=== PATIENT | female | born 1970 | race Caucasian/White ===

== ENCOUNTER → 2024-03-02 | Outpatient (BNVA) | payer BC, SELFPAY | END | disposition home or self-care (01) | PROVIDERS: PCP Family Medicine; Referring Provider Family Medicine; Visit Provider Urology | DX: N39.46 Mixed incontinence (principal); Z87.442 Personal history of urinary calculi; E78.2 Mixed hyperlipidemia; E66.9 Obesity, unspecified; Z68.36 Body mass index [BMI] 36.0-36.9, adult | CPT/HCPCS: 81003; 99212; G0463 ==

== ENCOUNTER → 2024-03-12 | Outpatient (CLI) | payer BC, SELFPAY ==
--- NOTE | 2024-03-12 14:37 | XR_ITS ---
Examination: Diagnostic digital mammography, unilateral, right Computer aided detection 3-D breast Tomosynthesis, unilateral Date and time of exam: March 12, 2024 at 1453 hours INDICATIONS: Mammogram March 09, 2024 14 mm nodule retroareolar region right breast Technique: Nonmagnified MLO, CC views of the right breast have been obtained, reconstructed from 3-D Tomosynthesis images. R2 computer aided detection program utilized for evaluation of suspicious masses and/or abnormal calcifications. 3-D Tomosynthesis images obtained. Findings: Scattered areas of fibroglandular density. No suspicious retroareolar mass is confirmed Impression: BI-RADS category 2: Benign findings Return to yearly follow-up mammography
--- NOTE | 2024-03-12 14:37 | XR_ITS ---
Examination: Breast ultrasound, unilateral, right complete Date and time of exam: March 12, 2024 1445 hours INDICATIONS: Right nipple pain one year, history right lumpectomy 2018 negative, mammogram March 09, 2024 more pronounced 14 mm nodule retroareolar region right breast with indistinct margins, retroareolar cyst on ultrasound right breast March 09, 2024 Technique: Real-time sommer scale ultrasonographic imaging performed right breast including all 4 quadrants as well as nipple retroareolar and axillary region. Findings: Multiple retroareolar cysts, 5 x 4 x 5 mm, 4 x 4 x 5 mm, 16 x 5 x 18 mm, 5 x 3 x 3 mm No solid nodules IMPRESSION: BI-RADS Category 2: Benign findings
== END | disposition home or self-care (01) ==
LOC: CDIM 14:29
PROVIDERS: PCP Family Medicine; Referring Provider Nurse Practitioner Family; Visit Provider Nurse Practitioner Family
DX: R92.321 Mammographic fibroglandular density, right breast (principal); N60.01 Solitary cyst of right breast
CPT/HCPCS: 76641; 77061; 77065; G0279

== ENCOUNTER 2024-03-21 08:05 | Day surgery (SDC) | payer BC, SELFPAY ==
[2024-03-20 11:33] VITALS: BMI 36.5
[2024-03-21 08:40] VITALS: BP 156/87; PULSE 70; RESP 20; TEMP 36.8; O2SAT 97; BMI 36.2
[2024-03-21] MEDS: RINGERS LACTATED 1000 ML 1,000 ML 20 ML IV (08:53)
[2024-03-21 11:15] VITALS: BP 158/102; PULSE 67; RESP 12; TEMP 36.7; O2SAT 98
--- NOTE | 2024-03-21 11:15 | SUR.PHASEI ---
1115 Patient arrived to recovery resting comfortably in [facility], drowsy and talking with staff, breathing unlabored, vital signs stable, denies pain, urinary catheter 16F in place, draining to gravity with light pink urine in place, lung sounds clear upon auscultation, bilateral radial pulses present when palpated, report received from Richi MEJIA and Dr. Tobar
[2024-03-21 11:20] VITALS: BP 144/85; PULSE 75; RESP 16; O2SAT 99
[2024-03-21 11:25] VITALS: BP 124/82; PULSE 62; RESP 15; O2SAT 97
[2024-03-21 11:30] VITALS: BP 130/87; PULSE 60; RESP 15; O2SAT 97
--- NOTE | 2024-03-21 11:37 | PD.SUROPNT ---
Date of Procedure 03/21/24 Pre Op Diagnosis Gross hematuria, recurrent urinary tract infection, Post Op Diagnosis Same plus bladder neck polyps and changes of cystitis cystica Procedure Cystoscopic examination bladder biopsy fulguration of bladder neck polyps Findings Cystitis cystica, bladder neck polyps Procedure Description This is a 54-year-old female she was seen in urology office she has a history of gross hematuria recurrent UTI. CAT scan of the abdomen and pelvis was done there was no kidney ureteral or bladder mass identified. She was recommended above procedure procedure and complications were discussed with the patient in great detail informed consent is obtained. Patient was brought to the operating room in a satisfactory condition after appropriate premedication she was appropriately identified by surgeon and operating room staff site scope and indication of the procedure were reconfirmed with the patient. Next patient was positioned in dorsolithotomy position after induction of general anesthesia uneventfully 21 cystoscope was introduced into the bladder per urethra examination of bladder in all the quadrant was carried out she had mild bladder trabeculation. There were bladder neck polyps fulguration was carried out there were changes of cystitis cystica biopsy was obtained fulguration was done. This was done to make sure there is no other pathology. At the end of the procedure no active bleeding was seen instrument was withdrawn gently patient and next after having tolerated the procedure well was sent to recovery room in a satisfactory condition to be discharged home with the full postoperative instructions verbally as well as in writing and of dictation thank you Anesthesia GETA Pathology / specimen Other (Bladder biopsy) Estimated Blood Loss 0.2 Disposition PACU Surgeon Gene Narayan MD Surgical Staff Operation Date: 03/21/24 10:30 Case Staff Anesthesiologist: Alex Tobar
--- NOTE | 2024-03-21 11:42 | SUR.PHASEII ---
1142 Gregg catheter discontinued per MD coats
[2024-03-21 11:45] VITALS: BP 126/81; PULSE 60; RESP 17; TEMP 36.8; O2SAT 96
--- NOTE | 2024-03-21 11:46 | SUR.PHASEII ---
1146 patient eating ice chips, tolerating well, denies nausea
--- NOTE | 2024-03-21 11:51 | SUR.PHASEII ---
1151 Report given to Cheryl Colbert RN
--- NOTE | 2024-03-21 12:12 | SUR.PHASEII ---
1151: pt awake, alert, able to follow commands, breathing unlabored, pt disconnected from monitors and ready to ambulate to bathroom, report from Cheryl Almanzar RN. 1212: pt able to ambulate with steady gait and dress self, discharge instructions given with son present, all questions answered, pt discharged via wheelchair with all belongings and copies of discharge paperwork
== END 2024-03-21 12:12 | disposition home or self-care (01) ==
PROVIDERS: PCP Nurse Practitioner Family; Referring Provider Urology; Visit Provider Urology
PROC: 0T5B8ZZ Destruction of Bladder, Via Natural or Artificial Opening Endoscopic (ICD-10-PCS; CPT 52214; principal; 2024-03-21 10:15)
DX: N30.81 Other cystitis with hematuria (principal); Z87.440 Personal history of urinary (tract) infections
CPT/HCPCS: 52214; A4217; A4649; J1100; J1580; J2250; J2405; J2704; J3010; J7120

== ENCOUNTER → 2024-06-11 | Outpatient (CLI) | payer BC, SELFPAY ==
[2024-06-11 14:55] LABS: Collection Type, Urine Clean Catch
[2024-06-11 15:56] LABS: Bacteria,Urine 3+; Bilirubin,Urine Negative (Negative); Blood,Urine Negative (Negative); Clarity,Urine Clear (Clear/Hazy); Color,Urine Yellow (Lt Yel-Yel); Glucose, Urine Negative (Negative); Ketones,Urine Negative (Negative); Leukocyte Esterase,Urine Positive (Negative); Nitrite,Urine Negative (Negative); PH,Urine 5.5 (5.0-7.0); Protein,Urine Negative (Neg - Trace); RBC,Urine 1 /hpf (0-3); Specific Gravity,Urine 1.023 (1.001-1.035); Squamous Epithelial Cell,Urine 3 /hpf (0-5); Urobilinogen,Urine Negative mg/dL (0.0-1.0); WBC,Urine 9 /hpf (0-5)
== END | disposition home or self-care (01) ==
LOC: SLDO 14:35
PROVIDERS: PCP Nurse Practitioner Family; Referring Provider Nurse Practitioner Family; Visit Provider Nurse Practitioner Family
DX: N30.00 Acute cystitis without hematuria (principal)
CPT/HCPCS: 81001; 87077; 87086; 87186

== ENCOUNTER → 2024-06-22 | Outpatient (BNVA) | payer BC, SELFPAY | END | disposition home or self-care (01) | PROVIDERS: PCP Family Medicine; Referring Provider Family Medicine; Visit Provider Urology | DX: N30.20 Other chronic cystitis without hematuria (principal); Z87.440 Personal history of urinary (tract) infections; Z87.442 Personal history of urinary calculi; E78.5 Hyperlipidemia, unspecified; E66.9 Obesity, unspecified; Z68.36 Body mass index [BMI] 36.0-36.9, adult | CPT/HCPCS: 81003; 99212; G0463 ==

== ENCOUNTER 2024-07-21 21:17 | Emergency (ER) | payer BC, SELFPAY ==
[2024-07-21 21:18] VITALS: BMI 36.0
--- NOTE | 2024-07-21 21:38 | EKG_ITS ---
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
[2024-07-21 21:44] VITALS: BP 147/89; PULSE 71; RESP 18; TEMP 36.8; O2SAT 98
--- NOTE | 2024-07-21 22:11 | EDNOTE_ITS ---
ED Chest Pain RME/HPI General Chief Complaint: Chest Pain Stated Complaint: Chest pain, NV Time Seen by Provider: 07/21/24 22:00 Arrival date/time: 07/21/24 21:17 RME / HPI RME / HPI narrative: This section includes all my notes and documentations, including HPI, PE, and ED course. Osman Carlson MD HPI: 54-year-old female here with several days of anterior chest pain. Seems to be worse with palpation and certain positions. No fever or chills. No shortness of breath. No unusual malaise and fatigue. No other complaints. ROS: All negative except as documented in HPI. Physical Exam: General: Alert and oriented. No acute distress when remaining still. Eyes: Conjunctivae and lids clear. ENT: No nasal congestion. Neck: Supple. Heart: RRR. Lungs: No respiratory distress. Good air movement. No rhonchi, wheezing, rales. Chest: Palpation of the anterior chest reproduces her pain. Abdomen: Soft and nontender. Skin: Warm and dry. Neuro: Alert and oriented X 3. I reviewed all diagnostic test results. My interpretation of the EKG is sinus rhythm with no acute ST?T changes. Blood tests unremarkable, including negative troponin/D-dimer/BNP. At this point, diagnoses include musculoskeletal chest pain. Treatment here included two Tylenol #3. Significant improvement noted. Recommended more outpatient cardiac workup. Based on my best medical judgment, made decision no further evaluation or treatment indicated at this time. Patient understands and agrees to the discharge instructions customized and printed, see below. Discharge instructions from Dr. Carlson: 1. After extensive evaluation, there is no life-threatening condition.? Such as heart attack or pulmonary embolism (blood clots in your lungs) or pneumothorax (collapsed lung). 2. Your pain can be originating from the chest wall and not from an internal organ.? The chest wall has many joints and muscles between the ribs, so sprains and strains are common.??There are other possibilities, including underlying stress/nerves/anxiety. 3. Apply ice or heat if helpful.? Tylenol with codeine for severe pain. 4. See a private doctor on 07/23/2024. To make sure there is no serious underlying heart condition, ask to help you get more tests for your heart that cannot be done here in the ER.? Such as Holter Monitor (cardiac monitoring at home from a day to even a month), heart stress test (on treadmill or with medication), echocardiogram (imaging of your heart structures), heart catherization (checking for blockages in your heart arteries), and a referral to see a Senior Commissions Analyst.? 5. Seek immediate medical care with worsening or with any concerns.?? Osman Carlson MD Related Data Previous Rx's ?Medication ?Instructions ?Recorded acetaminophen 300 mg-codeine 30 mg 2 tab PO Q8H PRN pa in #20 tabs 07/21/24 tablet Allergies Allergy/AdvReac Type Severity Reaction Status Date / Time No Known Allergies Allergy Verified 06/22/24 08:26 Course Quality Measures none Orders Category Date Time Status EKG (ED ONLY) *Do not use* NOW Care 07/21/24 21:38 Completed EKG (ED Only) Stat Exams 07/21/24 21:38 Draft BNP [B-Type Natriuretic Peptide] Stat Lab 07/21/24 22:34 Completed CBC Stat Lab 07/21/24 22:34 Completed CMP [Comprehensive Metabolic Panel] Stat Lab 07/21/24 22:34 Completed D-Dimer Stat Lab 07/21/24 22:34 Completed Magnesium Stat Lab 07/21/24 22:34 Completed TSH [Thyroid Stimulating Hormone] Stat Lab 07/21/24 22:34 Completed Troponin I Stat Lab 07/21/24 22:34 Completed ACETAMINOPHEN w/COD 300-30 [Tylenol w/Cod #3] Med 07/21/24 22:11 Discontinued 2 tab PO X1 ONE Vital Signs Vital signs: Vital Signs Temperature 98.2 F 07/21/24 21:44 Pulse Rate 71 07/21/24 21:44 Respiratory Rate 18 07/21/24 21:44 Blood Pressure 147/89 H 07/21/24 21:44 Pulse Oximetry (%) 98 07/21/24 21:44 Chest Pain Patient data External records reviewed:: [facility] [place] previous records Clinical information provided by:: patient Social determinants that could affect healthcare access:: none Patient has the following chronic illnesses:: Chronic chest pain How is presenting disease/condition affected by chronic disease/condition?: uneffected by Evaluation data The following diagnostics were reviewed and interpreted by me:: lab results, radiology exam(s) and EKG tracing(s) Lab and/or radiology exams considered but not ordered:: None Interpretation Summary: Normal diagnostics Medications / Prescriptions Medications or Prescriptions considered but not ordered:: None Medication administrations:: Medication Administration History Discontinued Medications Acetaminophen/Codeine Phosphate (Acetaminophen W/Cod 300-30 Tablet) 2 tab PO X1 ONE Stop: 07/21/24 22:12 Last Admin: 07/21/24 23:11 Dose: 2 tab Documented By: ELLY two Tylenol #3 Consultations Consultation(s) initiated? (list below): No Diagnosis Chest Pain Differential Diagnosis: pneumothorax, stable angina, unstable angina pectoris, atypical chest pain, st elevation myocardial infarction, costochondritis and chest pain Most likely diagnosis given after review of the tests above:: Musculoskeletal chest pain Admission Indicated Admission indicated?: not indicated Explain why admission is indicated or not indicated:: There was no indication for admission. Admission Request Was there a request for admission?: No Disposition Plan Disposition Plan: Discharge Discharge Attestation Discharge Attestation: The patient and all family members were given an opportunity to ask questions and understood the discharge instructions. Discharge instructions specifically effects, indications for sooner follow up or return to the emergency department, and the expected course of current diagnosis. Patient condition: Stable Discharge Plan Plan Patient Disposition: HOME (Self Care) Prescriptions/Referrals Prescriptions/Med Rec: New acetaminophen-codeine 300-30 mg tablet 2 tab PO Q8H MDD 6 PRN (Reason: pain) Qty: 20 0RF Referrals: Nabila Davis, [employer] [Primary Care Provider] - In 1 week Problem List Clinical Impression: Chest pain Patient/Caregiver Discharge Instructions Discharge Activity: activity as tolerated Education Materials: ED Chest Pain, Uncertain Cause Additional Instructions: Discharge instructions from Dr. Carlson: 1. After extensive evaluation, there is no life-threatening condition.? Such as heart attack or pulmonary embolism (blood clots in your lungs) or pneumothorax (collapsed lung). 2. Your pain can be originating from the chest wall and not from an internal organ.? The chest wall has many joints and muscles between the ribs, so sprains and strains are common.??There are other possibilities, including underlying stress/nerves/anxiety. 3. Apply ice or heat if helpful.? Tylenol with codeine for severe pain. 4. See a private doctor on 07/23/2024. To make sure there is no serious underlying heart condition, ask to help you get more tests for your heart that cannot be done here in the ER.? Such as Holter Monitor (cardiac monitoring at home from a day to even a month), heart stress test (on treadmill or with medication), echocardiogram (imaging of your heart structures), heart catherization (checking for blockages in your heart arteries), and a referral to see a Senior Commissions Analyst.? 5. Seek immediate medical care with worsening or with any concerns.?? Print Language: Slovenian Stand Alone Forms: Jackelyn Award Info., Patient Portal Info Letter
[2024-07-21 22:50] LABS: Basophils % (Auto) 1 % (0-2.5); Eosinophils # (Auto) 0.3 Thou/mm3 (0.0-0.5); Eosinophils % (Auto) 4 % (0-10); Hematocrit 40.6 % (36.0-46.0); Hemoglobin 14.3 g/dL (12.0-16.0); Immature Granulocytes % (Auto) 0 % (0-0); Immature Granulocytes Auto 0.02 Thou/mm3 (0.00-0.00); Lymphocytes # (Auto) 2.4 Thou/mm3 (1.0-4.8); Lymphocytes % (Auto) 30 % (10-50); Mean Corpuscular HGB Conc 35.2 g/dl (31.0-37.0); Mean Corpuscular Hemoglobin 29.7 pg (25.0-35.0); Mean Corpuscular Volume 84 fL (80-100); Monocytes # (Auto) 0.4 Thou/mm3 (0.0-0.8); Monocytes % (Auto) 5 % (0-12); Neutrophils # (Auto) 4.7 Thou/mm3 (1.8-7.7); Neutrophils % (Auto) 60 % (37-80); Nucleated Red Blood Cell % 0 /100 WBC (0); Platelet Count 260 Thou/mm3 (140-440); RDW Standard Deviation 42.1 fL (36.4-46.3); Red Blood Count 4.82 Miln/mm3 (4.00-5.20); White Blood Count 7.8 Thou/mm3 (3.6-11.0)
[2024-07-21 23:05] LABS: B-Type Natriuretic Peptide 26 pg/mL (0-100)
[2024-07-21 23:08] LABS: D-Dimer < 250 ng/mL (<600)
[2024-07-21 23:09] LABS: Alanine Aminotransferase 37 U/L (10-49); Albumin, Serum 4.3 gm/dL (3.5-5.0); Albumin/Globulin Ratio 1.9 (1.2-2.2); Alkaline Phosphatase 105 U/L (46-116); Anion Gap 10 (7-16); Aspartate Amino Transferase 28 U/L (0-34); BUN/Creatinine Ratio 14 Ratio (12-20); Bilirubin,Total 0.2 mg/dL (0.3-1.2); Blood Urea Nitrogen 11 mg/dL (9-23); Calcium 9.1 mg/dL (8.3-10.6); Calcium (Corrected) 9.1 mg/dL (8.5-10.1); Carbon Dioxide 25.9 mMol/L (20.0-31.0); Chloride 107 mMol/L (98-107); Creatinine (Component) 0.8 mg/dL (0.6-1.3); Estimated Creatinine Clearance 97.5 mL/min (>60); Globulin 2.3 gm/dL (2.3-3.5); Glucose 144 mg/dL (74-106); Magnesium 2.1 mg/dL (1.6-2.6); Osmolality,Calculated 287 (275-295); Potassium 3.8 mMol/L (3.4-5.1); Sodium 143 mMol/L (136-145); Thyroid Stimulating Hormone 4.82 uIU/mL (0.55-4.78); Total Protein 6.6 gm/dL (5.7-8.2); Troponin I < 0.002 ng/mL (0.0-0.045); eGFR > 60 See Note
[2024-07-21] MEDS: ACETAMINOPHEN w/COD 300-30 TABLET 2 TAB PO (23:11)
== END 2024-07-22 00:06 | disposition home or self-care (01) ==
PROVIDERS: Emergency Provider Emergency Medicine; PCP Nurse Practitioner Family
DX: R07.89 Other chest pain (principal); R94.31 Abnormal electrocardiogram [ECG] [EKG]
CPT/HCPCS: 36415; 80053; 83735; 83880; 84443; 84484; 85025; 85379; 93005; 99283; A9270

== ENCOUNTER → 2024-08-20 | Outpatient (CLI) | payer BC, SELFPAY ==
[2024-08-20 13:16] LABS: Basophils % (Auto) 1 % (0-2.5); Eosinophils # (Auto) 0.2 Thou/mm3 (0.0-0.5); Eosinophils % (Auto) 3 % (0-10); Hematocrit 41.1 % (36.0-46.0); Hemoglobin 13.8 g/dL (12.0-16.0); Immature Granulocytes % (Auto) 0 % (0-0); Immature Granulocytes Auto 0.03 Thou/mm3 (0.00-0.00); Lymphocytes % (Auto) 26 % (10-50); Mean Corpuscular HGB Conc 33.6 g/dl (31.0-37.0); Mean Corpuscular Hemoglobin 28.5 pg (25.0-35.0); Mean Corpuscular Volume 85 fL (80-100); Monocytes # (Auto) 0.6 Thou/mm3 (0.0-0.8); Monocytes % (Auto) 8 % (0-12); Neutrophils # (Auto) 4.7 Thou/mm3 (1.8-7.7); Neutrophils % (Auto) 62 % (37-80); Nucleated Red Blood Cell % 0 /100 WBC (0); Platelet Count 250 Thou/mm3 (140-440); RDW Standard Deviation 42.8 fL (36.4-46.3); Red Blood Count 4.84 Miln/mm3 (4.00-5.20); White Blood Count 7.6 Thou/mm3 (3.6-11.0)
[2024-08-20 13:19] LABS: Anion Gap 6 (7-16); BUN/Creatinine Ratio 14 Ratio (12-20); Blood Urea Nitrogen 13 mg/dL (9-23); Carbon Dioxide 26.4 mMol/L (20.0-31.0); Chloride 108 mMol/L (98-107); Creatinine (Component) 0.9 mg/dL (0.6-1.3); Glucose 89 mg/dL (74-106); Osmolality,Calculated 278 (275-295); Potassium 3.7 mMol/L (3.4-5.1); Sodium 140 mMol/L (136-145); eGFR > 60 See Note
[2024-08-20 13:22] LABS: Partial Thromboplastin Time 27.2 Seconds (22.0-36.0)
== END | disposition home or self-care (01) ==
LOC: COPL 12:30
PROVIDERS: PCP Family Medicine; Referring Provider Internal Medicine; Visit Provider Internal Medicine
DX: I25.10 Atherosclerotic heart disease of native coronary artery without angina pectoris (principal); I48.91 Unspecified atrial fibrillation
CPT/HCPCS: 36415; 80048; 85025; 85610; 85730

== ENCOUNTER → 2024-10-29 | Outpatient (CLI) | payer BC, SELFPAY ==
[2024-10-29 09:25] LABS: Glucose Estimated Average 114 mg/dL (80-131); Hemoglobin A1C 5.6 % Hgb (4.8-6.0)
[2024-10-29 09:26] LABS: Vitamin D 25 Hydroxy Total 29.3 ng/mL (7.3-40.2)
[2024-10-29 09:39] LABS: Cardiac Risk Estimate 5.4 RATIO (3.7-5.6); Cholesterol 209 mg/dL (132-200); HDL Cholesterol 39 mg/dL (40-60); LDL Cholesterol,Calculated 128 mg/dL (0-130); Thyroid Stimulating Hormone 3.68 uIU/mL (0.55-4.78); Triglycerides 212 mg/dL (30-150)
== END | disposition home or self-care (01) ==
LOC: COPL 08:06
PROVIDERS: PCP Nurse Practitioner Family; Referring Provider Nurse Practitioner Family; Visit Provider Nurse Practitioner Family
DX: Z00.00 Encounter for general adult medical examination without abnormal findings (principal); E78.2 Mixed hyperlipidemia; E55.9 Vitamin D deficiency, unspecified; R73.01 Impaired fasting glucose
CPT/HCPCS: 36415; 80061; 82306; 83036; 84443

== ENCOUNTER → 2024-12-24 | Outpatient (BNVA) | payer BC, SELFPAY | END | disposition home or self-care (01) | PROVIDERS: PCP Family Medicine; Referring Provider Family Medicine; Visit Provider Urology | DX: N39.0 Urinary tract infection, site not specified (principal); E78.2 Mixed hyperlipidemia; N39.3 Stress incontinence (female) (male); E66.9 Obesity, unspecified; Z71.3 Dietary counseling and surveillance; Z68.35 Body mass index [BMI] 35.0-35.9, adult | CPT/HCPCS: 81003; 99212; G0463 ==

== ENCOUNTER → 2025-04-08 | Outpatient (CLI) | payer BC, SELFPAY ==
--- NOTE | 2025-04-08 08:45 | XR_ITS ---
Examination: Breast ultrasound complete, bilateral Date and time of exam: April 08, 2025, 0846 hours INDICATIONS: Right breast lumpectomy 5 years ago, negative for carcinoma, history right breast cyst aspiration 2024, mammogram March 09, 2000 2416 mm retroareolar nodule, multiple retroareolar cysts on right breast sonogram March 12, 2024 Technique: Real-time grayscale ultrasonographic imaging bilateral breasts, including all 4 quadrants as well as nipple retroareolar and axillary regions. Findings: Sonographic images right breast Retroareolar cysts, 4 x 4 millimeter, 3 x 3 mm, 3 x 4 mm No solid nodules Sonographic images left breast No cystic or solid mass IMPRESSION: BI-RADS Category 2: Benign findings
--- NOTE | 2025-04-08 09:45 | XR_ITS ---
Examination: Screening digital mammography, bilateral Computer aided detection 3-D breast Tomosynthesis, bilateral Date and time of exam: April 08, 2025, 0836 hours, compared to mammograms dating to June 11, 2021 Indication: Screening Technique: Nonmagnified MLO, CC views of the breasts to been obtained, reconstructed from 3-D Tomosynthesis images. R2 computer aided detection program utilized for evaluation of suspicious masses and/or abnormal calcifications. 3-D Tomosynthesis images obtained. Findings: Scattered areas of fibroglandular density. Benign calcifications. No interval suspicious masses Impression: BI-RADS category II: Benign Findings. Recommend 1 year follow-up mammogram.
== END | disposition home or self-care (01) ==
PROVIDERS: PCP Nurse Practitioner Family; Referring Provider Surgery; Visit Provider Surgery
DX: Z12.31 Encounter for screening mammogram for malignant neoplasm of breast (principal); R92.323 Mammographic fibroglandular density, bilateral breasts; R92.1 Mammographic calcification found on diagnostic imaging of breast
CPT/HCPCS: 76641; 77063; 77067